=== PATIENT | male | born 1995 | race Caucasian/White ===

== ENCOUNTER 2025-03-30 02:05 | Emergency (ER) | payer SELFPAY ==
[2025-03-30] MEDS ORDERED: IBUP-1455 MT (03:15)
[2025-03-30] MEDS ORDERED: CEPH500C2 MT (03:15)
[2025-03-30] MEDS ORDERED: MUPI1OIN4 TP (03:15)
[2025-03-30] MEDS: CEPHALEXIN 250MG CAPSULE PO ONE (03:35)
[2025-03-30] MEDS: IBUPROFEN 600MG TABLET PO ONE (03:35)
[2025-03-30] MEDS: BACITRACIN ZINC OINT UDPKT TOP ONE (03:36)
[2025-03-30 04:47] VITALS: BP 140/74; PULSE 69; RESP 18; TEMP 36.8; O2SAT 99
== END 2025-03-30 04:54 | disposition home or self-care (01) ==
LOC: ER 02:05
DX: L03.039 Cellulitis of unspecified toe (principal); Z88.2 Allergy status to sulfonamides; Z79.899 Other long term (current) drug therapy
CPT/HCPCS: 99284